=== PATIENT | male | born 2005 | race Caucasian/White ===

== ENCOUNTER 2024-11-11 13:18 | Outpatient (AMB) | payer OTHER, MEDICAID, SELFPAY ==
--- NOTE | 2024-11-11 13:24 | A.OFFPC_ITS ---
Vital Signs 11/11/24 13:26 Height 6 ft Weight 180 lb 6 oz BMI 24.5 BP 136/66 Blood Pressure Location Lt brachial Position Sitting Pulse 71 Pulse Oximetry (%) 100 Oxygen Delivery Method Room Air Intake Visit Reasons: establish care Geological Sample Tester Required: No Accompanied by: Self / Same As Patient Allergies amoxicillin (AMOXICILLIN) Allergy (Unknown, Verified 11/11/24 13:33) HIVES Medication List - Last Reconciled 11/11/24 by Shweta Saenz PA-C fluticasone propionate 50 mcg/actuation (Flonase Allergy Relief) 1 spray intranasal DAILY Tobacco use date assessed: 11/11/24 Dental Screening Dental Screen Date: 11/11/24 Did you have a dental visit in the last 12 months?: Yes Did you have a dental problem in the last 6 months where you did not have access to dental care?: No Was dental information given to patient?: Patient has dentist HPI establish care HPI Details 19-year-old male coming to the office fo r the 1st time. Presenting with anxiety and ADHD symptoms. Anxiety affects schoolwork, with procrastination and difficulty completing tasks. ADHD symptoms include difficulty focusing on boring tasks, leading to distraction. Considering medication for anxiety and ADHD, with Wellbutrin discussed. 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 Symptoms worsened over the past month, with numbness, tingling, and burning sensations, possibly due to a new job. He is schedueld to see [facility] on November 28. [facility] Family History Mother Breast cancer Maternal Grandmother Ovarian cancer Maternal Grandfather Leukemia Social History Housing: House Questionnaire PHQ-9 Over the last 2 weeks, how often have you been bothered by any of the following problems? 1. Little interest or pleasure in doing things: not at all 2. Feeling down, depressed, or hopeless: not at all 3. Trouble falling or staying asleep, or sleeping too much: several days 4. Feeling tired or having little energy: several days 5. Poor appetite or overeating: not at all 6. Feeling bad about yourself - or that you are a failure or have let yourself or your family down: not at all 7. Trouble concentrating on things, such as reading the newspaper or watching television: several days 8. Moving or speaking so slowly that other people could have noticed. Or the opposite - being so fidgety or restless that you have been moving around a lot more than usual: not at all 9. Thoughts that you would be better off or of hurting yourself in some way: not at all Total score: 3 Depression Screening Interpretation: Negative Depression Screening Done: Yes 00814 - PHQ-9 Billing: Yes Source: Developed by Drs. Abraham Camacho, Paz Fowler, Jeremy Aguirre and colleagues, with an educational kathy from [employer]. Thrive Questionnaire Date Thrive assessed: 11/11/24 I am a: Patient What is your living situation today?: I have a steady place to live Within the past 12 months, did the food you bought not last and you didn't have the money to get more?: Never true Within the past 12 months, did you worry whether your food would run out before you got money to buy more?: Never true Do you have trouble paying for medicines?: No Do you have trouble getting transportation to medical appointments?: No Do you have trouble paying your heating and electricity bill?: No Do you have trouble taking care of your child, family member or friend?: No Do you have trouble with day-to-day activities such as bathing, preparing meals, shopping, managing finances, etc.?: No Are you currently unemployed and looking for a job?: No Are you interested in more education?: No Please select the resources that you would like help with: None Currently or been in a relationship where the following occur: No concerns reported THRIVE Score: 0 AUDIT C Alcohol Use Questionnaire (AUDIT-C) 1. How often do you have a drink containing alcohol?: 2-4 times a month 2. How many drinks containing alcohol do you have on a typical day when you are drinking?: 1 or 2 3. How often do you have six or more drinks on one occasion?: Less than monthly Total Score: 3 RICK-7 AMB Questionnaire RICK-7 Date RICK - 7 assessed: 11/11/24 Feeling nervous, anxious, or on edge: 1 = Several days Not being able to stop or control worryin = Not at all Worrying too much about different things: 1 = Several days Trouble relaxin = Not at all Being so restless that it is hard to sit still: 0 = Not at all Becoming easily annoyed or irritable: 0 = Not at all Feeling afraid as if something awful might happen: 1 = Several days Total RICK-7 score (0-4 normal; 5-9 mild; 10-14 moderate; 15-21 severe): 3 Source: Developed by Drs. Abraham Camacho, Paz Fowler, Jeremy Aguirre and colleagues, with an educational kathy from [employer]. RICK-7 Assessment Billing RICK-7 Assessment Tool: RICK-7 Assessment 72896 Review of Systems Const Denies body aches, Denies chills, Denies fever(s), Denies headache(s) and Denies poor appetite Eyes Reports no additional complaints and Reports requires corrective lenses ENT Denies dysphagia, Denies dizziness, Denies headache(s) and Denies odynophagia Card Denies chest pain, Denies syncope, Denies edema, Denies irregular heart rhythm, Denies lightheadedness and Denies dyspnea Resp Denies cough and Denies dyspnea GI Denies abdominal pain, Denies constipation, Denies dysphagia, Denies diarrhea, Denies nausea, Denies odynophagia and Denies vomiting Reports no additional complaints Musc Reports no additional complaints and Denies abnormal gait Skin/Breast Reports system reviewed and no additional complaints, except as documented Neuro Denies abnormal gait, Denies dizziness, Denies syncope and Denies headache(s) Psych Reports no additional complaints Physical exam (Primary Care) Vital Signs: Last Vital Signs Pulse 71 11/11/24 13:26 BP 136/66 11/11/24 13:26 Pulse Ox 100 11/11/24 13:26 Oxygen Delivery Method Room Air 11/11/24 13:26 BMI result Body Mass Index 24.5 Tobacco/Smoking Status: Tobacco use Status Tobacco use date assessed 11/11/24 11/11/24 13:31 PHQ-9: PHQ-9 Score PHQ-9: Total score 3 11/11/24 13:36 Depression Screening Interpretation: Negative Thrive Assessment: Date of Thrive Assessment Date Thrive assessed 11/11/24 11/11/24 13:31 Currently or been in a relationship where the following occur: No concerns reported Const General: cooperative, healthy appearing, comfortable and no acute distress Orientation/consciousness: patient oriented x3 HENMT Head: Yes normocephalic Ears: hearing grossly normal bilaterally General nose exam: Normal external nose present Face and sinus: Yes normal facial exam and Yes sinuses nontender Mouth: Normal oral and palatal mucosa present and tongue normal Throat: Yes posterior oropharynx normal Eyes General: appearance normal, both eyes and all related structures Conjunctivae: conjunctivae normal Pupils: Equal, round and reactive pupils present EOM: EOMs intact bilaterally and No Nystagmus present Neck Other: No tenderness to palpation over cervical spine Neck: Yes full ROM and Yes no lymphadenopathy Chest Chest palpation & inspection: normal inspection of the chest Resp Effort & Inspection: normal respiratory effort Auscultation: clear to auscultation bilaterally, no crackles, no rales, no rhonchi and no wheezes Cardio Rate: regular rate Rhythm: regular rhythm Peripheral pulses: radial pulses present and dorsalis pedis present GI Inspection: Yes normal to inspection and No Abdominal wall edema Palpation (GI): Soft to palpation, not firm and nontender Auscultation: normal bowel sounds Rectal Exam - Male: Yes deferred General: Yes no CVA tenderness Back/Spine/Pelvis Other: No tenderness to palpation over entirety of spine or paraspinal muscles Back: no CVA tenderness Skin General skin exam: no rashes or lesions noted Neuro Other: No tenderness to palpation over entirety of left shoulder or scapula. Pain with internal rotation General: patient oriented x3 Cranial nerves: Yes Equal, round and reactive pupils present, Yes Midline tongue present, Yes Ability to bilaterally elevate shoulders present and No Nystagmus present Gait exam (Neuro): Normal gait present Extrem General: Yes normal to inspection, Yes full ROM and No edema Psych Speech and movement: Normal speech and movement present Affect: normal affect Attitude: cooperative Insight: Good insight present (Psych) Judgement: Good judgement present (Psych) Coding Level of Care Code New Pt Prev Care 18-39yr(16857 Diagnoses Annual physical exam Z00.00 Anxiety F41.9 Difficulty concentrating R41.840 Left shoulder pain M25.512 Allergic rhinitis J30.9 Additional Codes RICK-7 Assessment Billing - RICK-7 Assessment Tool: RICK-7 Assessment 85268 ([id number]) PHQ-9 - 50084 - PHQ-9 Billing: Yes ([id number]) Assessment & Plan Assessment & Plan (1) Annual physical exam: Code(s): Z00.00 - Encounter for general adult medical examination without abnormal findings Category: Medical Plan: Patient is up-to-date on all recommended routine screenings and vaccinations for his age. I ordered for updated blood work. Healthy diet and regular exercise is encouraged. (2) Anxiety: Code(s): F41.9 - Anxiety disorder, unspecified Category: Medical Plan: For anxiety and possible ADHD plan to trial Wellbutrin twice daily for co- treatment of these conditions. Plan to have a follow up telehealth visit in 4 months to evaluate how the medication is working or sooner if needed. (3) Difficulty concentrating: Code(s): R41.840 - Attention and concentration deficit Category: Medical Plan: See above (4) Left shoulder pain: Code(s): M25.512 - Pain in left shoulder Category: Medical Plan: An x-ray of the shoulder is recommended to check for structural issues, however he would like to defer at this time to allow Orthopedics to obtain this imaging, and physical therapy is suggested to alleviate muscular pain. The patient should follow up with orthopedics for further assessment. Patient may use Tylenol, ibuprofen and heating pads as needed (5) Allergic rhinitis: Code(s): J30.9 - Allergic rhinitis, unspecified Category: Medical Plan: Continue with Flonase Plan The patient will start Wellbutrin at 100 mg twice daily to manage anxiety and ADHD symptoms, with a follow-up planned to evaluate its effectiveness and any side effects. If Wellbutrin is not suitable, other treatment options will be explored. The patient should report any adverse effects, such as increased agitation, immediately. Preventative care includes an annual physical exam and updated vaccinations. Blood work is ordered to evaluate kidney, liver, electrolytes, vitamins, and thyroid function, to be completed within four months for review at the next visit. This note was constructed using voice recognition software. While every effort has been made to ensure accuracy and woods rider, still areas may have been included sometimes these areas may affect the content or meeting of the given symptoms. Total time spent caring for the patient today was 30 minutes. This includes time spent before the visit reviewing the chart, time spent during the visit, and time spent after the visit and documentation. Patient was informed and verbally consented to the use of an ambient scribe for clinic note documentation during this visit. Orders: Orders PT Evaluation and Treatment Today M25.512 - Pain in left shoulder TSH reflex Free T4 Today F41.9 - Anxiety disorder, unspecified, Z00.00 - Encounter for general adult medical examination without abnormal findings Vitamin B12 and Folate Today F41.9 - Anxiety disorder, unspecified, Z13.21 - Encounter for screening for nutritional disorder Complete Blood Count Auto Diff Today J30.9 - Allergic rhinitis, unspecified, Z00.00 - Encounter for general adult medical examination without abnormal findings Comprehensive Met. Panel Today F41.9 - Anxiety disorder, unspecified, Z00.00 - Encounter for general adult medical examination without abnormal findings Medications: New bupropion HCl 100 mg PO BID 60 tabs 0RF
[2024-11-11 13:26] VITALS: BP 136/66; PULSE 71; O2SAT 100; BMI 24.5
--- OUTSIDE RECORDS SUMMARY | 2024-11-11 14:02 | XMS_ITS | Clinical Summary ---
Author Organization [facility] Address [address] [place] [id number] Phone Care Team Providers Care Poker Manager Name Role Phone Pcp, Unknown Primary Care Provider Unavailabl e Social History Tobacco Use Types Packs/Day Years Used Date Smoking Tobacco: Never Assessed Education Answer Date Recorded Are you interested in more education? Not on pili e 11/06/2024 Are you concerned about learning? Not on file 11/06/2024 No 11/06/2024 No 11/06/2024 Digital Access Answer Date Recorded No 11/06/2024 No 11/06/2024 Reliable internet access at home? Not on file 11/06/2024 Device with a working camera? Not on file Sex and Gender Information Value Date Recorded Sex Assigned at Not on file Legal Sex Male 9:09 AM EDT Gender Identity Not on file Sexual Orientation Not on file Plan of Treatment Upcoming Encounters Date Type Department Care Team (Late st Contact Info) Description 11/27/2024 1:15 PM EDT Office Visit [facility] Orthopedics & Sports Medicine [address] [place] [id number] Emma Rodriguez MD [address] [place] [address] Orthopedics & Sports Medicine, [facility] [place] [address] Health Maintenance Due Date Last Done Comments Adult Td,Tdap Booster 2003 MMR VACCINES (1 of 1 - Stand deena series) 09/28/2004 COMBINED DTaP,Tdap,Td (1 - Tdap) 09/28/2010 DEPRESSION SCREENING 2015 SMOKING Hx and SMOKELESS TOB ACCO SCREENING 09/28/2016 HPV VACCINES (1 - Male 3-dos e series) 09/28/2018 MENINGOCOCCAL VACCINES (B) ( 1 of 2 - Standard) 2019 ADOLESCENT UNIVERSAL LIPID SCREENING 09/28/2020 HEPATITIS C SCREENING 09/28/2021 HIV ONE-TIME SCREENING (18-6 5 YEARS) 09/28/2021 COVID-19 VACCINE (1 - 2023-2 5 season) 2023 HEPATITIS A VACCINES Aged Out No long er eligible based on patient's age to complete this topic HIB VACCINES Aged Out No longer eligi ble based on patient's age to complete this topic MENINGOCOCCAL VACCINES (ACWY) Aged Out No longer eligible based on patient's age to complete this topic PNEUMOCOCCAL VACCINES (0-49 years) Aged Out No longer eligible based on patient's age to complete this topic Medical Devices Not on file Insurance [facility] HMO Care Teams Poker Manager Relationship Specialty Start Date End Date Pcp, Unknown PCP - General 11/06/24 Additional Source Comments The information contained in this document represents components of the legal health record. It is not the complete legal health record.[facility]
--- OUTSIDE RECORDS SUMMARY | 2024-11-11 14:02 | XMS_ITS | Encounter Summary ---
Author Organization [facility] Address [address] [place] [phone] Phone Care Team Providers Care Plant Operator Control Room Operator Name Role Phone Unavailable Primary Care Provider Unavailabl e Encounter Details Date Type Department Care Team (Late st Contact Info) Description 09/24/2012 Documentation [facility] [place] [address] [place] [address] Family Medicine, Physician [facility] [place] [address] Social History Tobacco Use Types Packs/Day Years Used Date Smoking Tobacco: Never Assessed Sex and Gender Information Value Date Recorded Sex Assigned at Male 09/28/2023 11:19 AM EDT Legal Sex Male 4:58 PM EDT Gender Identity Male 09/28/2023 11:19 AM EDT Sexual Orientation Straight 07/07/2021 9: 13 AM EDT documented as of this encounter Plan of Treatment Not on file documented as of this encounter Visit Diagnoses Not on filedocumented in this encounter
== END 2024-11-11 14:06 | disposition home or self-care (01) ==
DX: Z00.00 Encounter for general adult medical examination without abnormal findings (principal); F41.9 Anxiety disorder, unspecified; R41.840 Attention and concentration deficit; M25.512 Pain in left shoulder; J30.9 Allergic rhinitis, unspecified

== ENCOUNTER → 2024-11-11 13:18 | Outpatient (BNVA) | payer OTHER, SELFPAY | DX: Z00.00 Encounter for general adult medical examination without abnormal findings (principal); F41.9 Anxiety disorder, unspecified; R41.840 Attention and concentration deficit; M25.512 Pain in left shoulder; J30.9 Allergic rhinitis, unspecified | CPT/HCPCS: 96127 ==

== ENCOUNTER 2024-12-02 13:52 | Outpatient (REF) | payer OTHER, MEDICAID, SELFPAY ==
[2024-12-02 14:11] LABS: MANUAL DIFF FLAG NO
--- OUTSIDE RECORDS SUMMARY | 2024-12-02 14:22 | XMS_ITS | Encounter Summary ---
Author Organization [facility] Address [address] [place] [phone] Phone Care Team Providers Care Egg Setter Name Role Phone Unavailable Primary Care Provider Unavailabl e Encounter Details Date Type Department Care Team (Late st Contact Info) Description 02/22/2011 Documentation [facility] [place] [address] [place] [address] Family Medicine, Physician [facility] [place] [address] Social History Tobacco Use Types Packs/Day Years [...]
--- OUTSIDE RECORDS SUMMARY | 2024-12-02 14:22 | XMS_ITS | Clinical Summary ---
Author Organization [facility] Address [address] [facility] [address] [place] [phone] Phone Care Team Providers Care Drapery Cutter Machine Name Role Phone Shweta Saenz Primary Care Provide r Allergies Active Allergy Reactions Criticality Noted Date Comments Amoxicillin Hives,Rash Low 11/27/2024 Medications No known medications Encounters Date Type Department Care Team Description 11/27/2024 1:15 PM EDT Office Visit [facility] Orthopedics & Sports Medicine [address] [place] [id number] Emma Rodriguez MD Periscapular pain of left shoulder (Primary Dx) 11/27/2024 1:14 PM EDT - 11/27/2024 11:59 PM EDT Hospital Encounter [address] [address] Emma Rodriguez MD Discharge Disposition: Home or Self Care from Last 3 Months Social History Tobacco Use Types Packs/Day Years [...] Orientation Not on file Plan of Treatment Health Maintenance Due Date Last Done Comments DEPRESSION SCREENING 2015 SMOKING Hx and SMOKELESS TOBACCO SCREENING 09/28/2016 ADOLESCENT UNIVERSAL LIPID SCREENING 09/28/2020 HIV ONE-TIME SCREENING (18-65 YEARS) 09/28/2021 COMBINED DTaP,Tdap,Td (3 - Td or Tdap) 05/19/2024 11/17/2023, 11/12/2014 Adult Td,Tdap Booster 11/16/2033 11/17/2023, 015 MMR VACCINES Completed 10/29/2007, 10/04/2004 HPV VACCINES Completed 06/06/2016, 01/22, 12/01/2015 MENINGOCOCCAL VACCINES (ACWY) Completed 10/22/2019, 11/12/2014 MENINGOCOCCAL VACCINES (B) Completed 09/26/2022, HEPATITIS C SCREENING Completed 09/28/2023 COVID-19 VACCINE Completed 01/27/2024, , 03/15/2022, Additional history exists HEPATITIS A VACCINES Aged Out No long er eligible based on patient's age to complete this topic HIB VACCINES Aged Out No longer eligi ble based on patient's age to complete this topic PNEUMOCOCCAL VACCINES (0-49 years) Aged Out No longer eligible based on patient's age to complete this topic Medical Devices Not on file Procedures Procedure Name Priority Date/Time Associated Diagnosis Comments XR SHOULDER 2 VIEWS (LEFT) Routine 11/27/2024 1:24 PM EDT Left shoulder pain from Last 3 Months Results * XR SHOULDER 2 VIEWS (LEFT) (11/27/2024 1:24 PM EDT) Narrative SYSTEMGENERATED, DOCUMENTATION - 11/27/2024 1:24 PM EDT This image report has been auto-finalized and has not been read by a Radiologist. Interpretation has been included in the provider encounter note for this date of service. us Emma Rodriguez MD IMG XR UPPER EXTREMITY Fi nal Result from Last [address] [place], [place] [id number] [facility] O Member Subscriber Plan / Payer (Ef fective 2024-) Name:Sonny Edwards Relation to Subscriber:Self Name:Sonny Edwards Payer ID:Not on file Type:[address] Member Subscriber Plan / Payer (Ef fective 2024-) Name:Sonny Edwards Relation to Subscriber:Self Name:Sonny Edwards Payer ID:Not on file Type:O [address] Member Subscriber Plan / Payer (Ef fective 2024-) Name:Sonny Edwards Relation to Subscriber:Self Name:Sonny Edwards Payer ID:Not on file Type:O [address] Member Subscriber Plan / Payer (Ef fective 2024-) Name:Sonny Edwards Relation to Subscriber:Self Name:Sonny Edwards Payer ID:Not on file Type:[facility] [address] Care Teams Drapery Cutter Machine Relationship Specialty Start Date End Date Shweta Saenz PA [address] [place] [address] [place] [address] PCP - General Physician Air Conditioning Service Technician 11/27/24 Additional Source Comments The information contained in this document represents components of the legal health record. It is not the complete legal health record.[facility]
[2024-12-02 14:54] LABS: Hematocrit 44.7 % (42.0-52.0); Hemoglobin 15.6 g/dl (14.0-18.0); Imm Gran Abs Auto 0.01 X10*3/uL (0.00-0.03); Imm Gran Pct Auto 0.2 % (0.0-0.4); Lymphocytes Absolute Auto 1.8 X10*3/uL (1.2-4.9); Mean Corpuscular HGB Conc 34.9 g/dl (31.0-36.0); Mean Corpuscular Hemoglobin 28.4 pg (27.0-33.0); Mean Corpuscular Volume 81.3 fL (80.0-98.0); NRBC Abs Auto 0.000 X10*3/uL (0.0-0.012); NRBC Pct Auto 0.0 /100WBC (0.0-0.2); Platelet Count 269 X10*3/uL (160-400); Red Blood Count 5.50 X10*6/uL (4.60-5.80); White Blood Count 5.5 X10*3/uL (4.8-10.8)
[2024-12-02 15:48] LABS: Alanine Aminotransferase 26 U/L (0-40); Albumin Level 4.9 g/dL (3.5-5.0); Alkaline Phosphatase 64 U/L (39-117); Anion Gap 12 (12-20); Aspartate Amino Transferase 24 U/L (5-37); Blood Urea Nitrogen 12 mg/dL (9-16); Calcium 9.5 mg/dL (8.4-10.2); Carbon Dioxide 26 mmol/L (22-29); Chloride 107 mmol/L (96-108); Estimated Glomerular Filt Rate > 60; Potassium 4.1 mmol/L (3.3-5.1); Sodium 141 mmol/L (135-145); Total Protein 7.5 g/dL (6.5-8.0)
[2024-12-02 16:18] LABS: Folate 6.3 ng/mL (> or = 4.0); Vitamin B12 476 pg/mL (200-900)
== END 2024-12-02 13:53 | disposition home or self-care (01) ==
LOC: HO.LAB 13:52
DX: Z00.00 Encounter for general adult medical examination without abnormal findings (principal); F41.9 Anxiety disorder, unspecified; J30.9 Allergic rhinitis, unspecified; Z13.21 Encounter for screening for nutritional disorder
CPT/HCPCS: 36415; 80053; 82607; 82746; 84443; 85025

== ENCOUNTER 2025-03-14 15:01 | Outpatient (AMB) | payer OTHER, MEDICAID, SELFPAY ==
[2025-03-14 15:05] VITALS: BMI 22.4
--- NOTE | 2025-03-14 15:05 | MHC.PC.OV ---
Vital Signs 03/14/25 15:05 Height 6 ft Weight 165 lb BMI 22.4 Intake Visit Reasons: f/u medication tele Healthcare Manager Required: No Accompanied by: Self / Same As Patient Allergies amoxicillin (AMOXICILLIN) Allergy (Unknown, Verified 03/14/25 15:13) HIVES Medication List - Last Reconciled 03/14/25 by Shweta Saenz PA-C bupropion HCl 100 mg PO BID fluticasone propionate 50 mcg/actuation (Flonase Allergy Relief) 1 spray intranasal DAILY Tobacco use date assessed: 11/11/24 Dental Screening Dental Screen Date: 11/11/24 Did you have a dental visit in the last 12 months?: Yes Did you have a dental problem in the last 6 months where you did not have access to dental care?: No Was dental information given to patient?: Patient has dentist HPI f/u medication tele HPI Details 19 year old male with past medical history anxiety last seen 10/2024 presenting via telehealth for follow up on anxiety. Patient was started on Wellbutrin at his last visit for anxiety and ADHD. Patient tells us today he has not been having side effects to the Wellbutrin but does not feel it has been overly beneficial for him. He would like to increase the dose of the medication. His shoulder pain has resolved he has no concerns today [facility] Family History Mother Breast cancer Maternal Grandmother Ovarian cancer Maternal Grandfather Leukemia Social History Housing: House Patient Tobacco Use Status: Never used Tobacco Tobacco use type: Cigarette e-Cigarette/Vaping Use: Never Used service: No Current occupational status: employed and student Current occupation: [employer] Cognitive needs: No Hearing needs: No Vision needs: No Questionnaire PHQ-9 Over the last 2 weeks, how often have you been bothered by any of the following problems? 1. Little interest or pleasure in doing things: not at all 2. Feeling down, depressed, or hopeless: not at all 3. Trouble falling or staying asleep, or sleeping too much: several days 4. Feeling tired or having little energy: several days 5. Poor appetite or overeating: not at all 6. Feeling bad about yourself - or that you are a failure or have let yourself or your family down: not at all 7. Trouble concentrating on things, such as reading the newspaper or watching television: several days 8. Moving or speaking so slowly that other people could have noticed. Or the opposite - being so fidgety or restless that you have been moving around a lot more than usual: not at all 9. Thoughts that you would be better off or of hurting yourself in some way: not at all Total score: 3 Depression Screening Interpretation: Negative Depression Screening Done: Yes 54871 - PHQ-9 Billing: Yes Source: Developed by Drs. Abraham Camacho, Paz Fowler, Jeremy Aguirre and colleagues, with an educational kathy from [employer]. Thrive Questionnaire Date Thrive assessed: 11/07/24 I am a: Patient What is your living situation today?: I have a steady place to live Within the past 12 months, did the food you bought not last and you didn't have the money to get more?: Never true Within the past 12 months, did you worry whether your food would run out before you got money to buy more?: Never true Do you have trouble paying for medicines?: No Do you have trouble getting transportation to medical appointments?: No Do you have trouble paying your heating and electricity bill?: No Do you have trouble taking care of your child, family member or friend?: No Do you have trouble with day-to-day activities such as bathing, preparing meals, shopping, managing finances, etc.?: No Are you currently unemployed and looking for a job?: No Are you interested in more education?: No Please select the resources that you would like help with: None Currently or been in a relationship where the following occur: No concerns reported THRIVE Score: 0 AUDIT C Alcohol Use Questionnaire (AUDIT-C) 1. How often do you have a drink containing alcohol?: 2-4 times a month 2. How many drinks containing alcohol do you have on a typical day when you are drinking?: 1 or 2 3. How often do you have six or more drinks on one occasion?: Less than monthly Total Score: 3 RICK-7 AMB Questionnaire RICK-7 Date RICK - 7 assessed: 11/11/24 Feeling nervous, anxious, or on edge: 1 = Several days Not being able to stop or control worryin = Not at all Worrying too much about different things: 1 = Several days Trouble relaxin = Not at all Being so restless that it is hard to sit still: 0 = Not at all Becoming easily annoyed or irritable: 0 = Not at all Feeling afraid as if something awful might happen: 1 = Several days Total RICK-7 score (0-4 normal; 5-9 mild; 10-14 moderate; 15-21 severe): 3 Source: Developed by Drs. Abraham Camacho, Paz Fowler, Jeremy Aguirre and colleagues, with an educational kathy from [employer]. RICK-7 Assessment Billing RICK-7 Assessment Tool: RICK-7 Assessment 78140 Review of Systems Const Denies body aches, Denies chills, Denies fever(s), Denies headache(s) and Denies poor appetite Eyes Reports no additional complaints ENT Denies dizziness and Denies headache(s) Card Denies chest pain, Denies edema, Denies lightheadedness and Denies dyspnea Resp Denies cough and Denies dyspnea GI Denies abdominal pain, Denies nausea and Denies vomiting Reports no additional complaints Musc Reports no additional complaints and Denies abnormal gait Skin/Breast Reports system reviewed and no additional complaints, except as documented Neuro Denies abnormal gait, Denies dizziness and Denies headache(s) Psych Reports no additional complaints Physical exam (Primary Care) Vital Signs: Vital signs and physical exam not performed due to nature of telehealth visit BMI result Body Mass Index 22.4 Tobacco/Smoking Status: Tobacco use Status Tobacco use date assessed 11/11/24 03/14/25 15:07 Patient Tobacco Use Status Never used Tobacco 03/14/25 15:07 Tobacco use type Cigarette 03/14/25 15:07 e-Cigarette/Vaping Use Never Used 03/14/25 15:07 PHQ-9: PHQ-9 Score PHQ-9: Total score 3 03/14/25 15:07 Depression Screening Interpretation: Negative Thrive Assessment: Date of Thrive Assessment Date Thrive assessed 11/07/24 03/14/25 15:07 Currently or been in a relationship where the following occur: No concerns reported Telehealth Telehealth Telehealth Platform: Telephone Location of provider rendering services: practice address Location of patient: address on file Patient Identification confirmed using: Name, : Yes Telehealth method: voice only Patient verbally consented to treatment: Yes Patient verbally consented to billing insurance company: Yes Patient informed of any privacy concerns related to visit: Yes Coding Level of Care Code Est Pt Level 3 (20996) Diagnoses Anxiety F41.9 Difficulty concentrating R41.840 Left shoulder pain M25.512 Additional Codes RICK-7 Assessment Billing - RICK-7 Assessment Tool: RICK-7 Assessment 44214 ([id number]) PHQ-9 - 98814 - PHQ-9 Billing: Yes ([id number]) Assessment & Plan Assessment & Plan (1) Anxiety: Code(s): F41.9 - Anxiety disorder, unspecified Category: Medical Plan: Plan to switch wellbutrin to 150 mg sustained release BID to increase the dose as he does not feel the TID dosing would be a good option for him. Discussed with patient to follow up if he has side effects to this medication or if he does not feel it is effective. He will reach out if he has any concern. (2) Difficulty concentrating: Code(s): R41.840 - Attention and concentration deficit Category: Medical Plan: See above. (3) Left shoulder pain: Code(s): M25.512 - Pain in left shoulder Category: Medical Plan: Resolved at this time. Plan This note was constructed using voice recognition software. While every effort has been made to ensure accuracy and cloth washer operator, still areas may have been included sometimes these areas may affect the content or meeting of the given symptoms. Total time spent caring for the patient today was 15 minutes. This includes time spent before the visit reviewing the chart, time spent during the visit, and time spent after the visit and documentation. Patient was informed and verbally consented to the use of an ambient scribe for clinic note documentation during this visit. Medications: New bupropion HCl SR (Wellbutrin SR) 150 mg PO BID 180 tabs 0RF Discontinued bupropion HCl Discontinued Reason: Patient no longer taking 100 mg PO BID 180 tabs 1RF
--- OUTSIDE RECORDS SUMMARY | 2025-03-14 15:10 | XMS_ITS | Encounter Summary ---
Author Organization [facility] Address [address] [place] [address] Phone Care Team Providers Care Floral Decorator Name Role Phone Unavailable Primary Care Provider Unavailabl e Encounter Details Date Type Department Care Team (Late st Contact Info) Description 02/03/2016 Documentation [facility] [place] Family Medicine [address] [place] [address] Family Medicine, Physician [facility] [place] [address] Social History Tobacco Use Types Packs/Day Years [...]
--- OUTSIDE RECORDS SUMMARY | 2025-03-14 15:10 | XMS_ITS | Encounter Summary ---
Author Organization [facility] Address [address] [place] [address] Phone Care Team Providers Care Property Field Inspector Name Role Phone Unavailable Primary Care Provider Unavailabl e Encounter Details Date Type Department Care Team (Late st Contact Info) Description 02/24/2014 Documentation [facility] [place] [address] [place] [address] Family Medicine, Physician [facility] [address] Social History Tobacco Use Types Packs/Day Years [...]
--- OUTSIDE RECORDS SUMMARY | 2025-03-14 15:10 | XMS_ITS | Encounter Summary ---
Author Organization [facility] Address [address] [place] [address] Phone Care Team Providers Care Healthcare Translator Name Role Phone Unavailable Primary Care Provider Unavailabl e Encounter Details Date Type Department Care Team (Late st Contact Info) Description 02/21/2011 Documentation [facility] [place] [facility] [place] [address] [place] [address] Family Medicine, Physician [facility] [place] [address] Social History Tobacco Use Types Packs/Day Years [...]
--- OUTSIDE RECORDS SUMMARY | 2025-03-14 15:10 | XMS_ITS | Encounter Summary ---
Author Organization [facility] Address [address] [place] [address] Phone Care Team Providers Care Data Designer Name Role Phone Unavailable Primary Care Provider Unavailabl e Encounter Details Date Type Department Care Team (Late st Contact Info) Description 02/01/2012 Documentation [facility] [place] Family Medicine [address] [place] [address] Family Medicine, Physician [facility] [place] [address] Social History Tobacco Use Types Packs/Day Years [...]
--- OUTSIDE RECORDS SUMMARY | 2025-03-14 15:10 | XMS_ITS | Encounter Summary ---
Author Organization [facility] Address [address] [place] [address] Phone Care Team Providers Care Manager Student Services Name Role Phone Unavailable Primary Care Provider Unavailabl e Encounter Details Date Type Department Care Team (Late st Contact Info) Description 02/03/2016 Documentation [facility] [place] Family Medicine [address] [place] [address] Family Medicine, Physician [facility]placed by [facility] [place] [address] Social History Tobacco Use Types Packs/Day Years [...]
--- OUTSIDE RECORDS SUMMARY | 2025-03-14 15:10 | XMS_ITS | Encounter Summary ---
Author Organization [facility] Address [address] [place] [address] Phone Care Team Providers Care Swahili Teacher Name Role Phone Unavailable Primary Care Provider Unavailabl e Encounter Details Date Type Department Care Team (Late st Contact Info) Description 01/24/2013 Documentation [facility] [place] Family Medicine [address] [place] [address] Family Medicine, Physician [facility] [place] [address] Social History Tobacco Use Types Packs/Day Years [...]
--- OUTSIDE RECORDS SUMMARY | 2025-03-14 15:10 | XMS_ITS | Encounter Summary ---
Author Organization [facility] Address [address] [place] [address] Phone Care Team Providers Care Mailhouse Operator Name Role Phone Unavailable Primary Care Provider Unavailabl e Encounter Details Date Type Department Care Team (Late st Contact Info) Description 02/25/2014 Documentation [facility] Family Medicine [address] [place] [address] Family Medicine, Physician [facility] [place] [address] Social History Tobacco Use Types Packs/Day Years [...]
--- OUTSIDE RECORDS SUMMARY | 2025-03-14 15:10 | XMS_ITS | Encounter Summary ---
Author Organization [facility] Address [address] [place] [address] Phone Care Team Providers Care Rn Perioperative Name Role Phone Unavailable Primary Care Provider Unavailabl e Encounter Details Date Type Department Care Team (Late st Contact Info) Description 10/04/2012 Documentation [facility] [place] Family Medicine [address] [place] [address] Family Medicine, Physician [facility] [place] [address] Social History Tobacco Use Types Packs/Day Years [...]
--- OUTSIDE RECORDS SUMMARY | 2025-03-14 15:10 | XMS_ITS | Encounter Summary ---
Author Organization [facility] Address [address] [place] [address] Phone Care Team Providers Care Soil Fertility Specialist Name Role Phone Unavailable Primary Care Provider Unavailabl e Encounter Details Date Type Department Care Team (Late st Contact Info) Description 12/02/2015 Documentation [facility] [place] Family Medicine [address] [place] [address] Family Medicine, Physician [facility] [place] [address] Social History Tobacco Use Types Packs/Day Years [...]
--- OUTSIDE RECORDS SUMMARY | 2025-03-14 15:10 | XMS_ITS | Encounter Summary ---
Author Organization [facility] Address [address] [place] [address] Phone Care Team Providers Care Digital Product Manager Name Role Phone Unavailable Primary Care Provider Unavailabl e Encounter Details Date Type Department Care Team (Late st Contact Info) Description 11/07/2011 Documentation [facility] [place] [address] [place] [address] Family Medicine, Physician [facility] [place] [address] Social History Tobacco Use Types Packs/Day Years [...]
--- OUTSIDE RECORDS SUMMARY | 2025-03-14 15:10 | XMS_ITS | Encounter Summary ---
Author Organization [facility] Address [address] [place] [address] Phone Care Team Providers Care Tin Pourer Name Role Phone Unavailable Primary Care Provider Unavailabl e Encounter Details Date Type Department Care Team (Late st Contact Info) Description 11/13/2014 Documentation [facility] [place] Family Medicine [address] [place] [address] Family Medicine, Physician [facility] [place] [address] Social History Tobacco Use Types Packs/Day Years [...]
--- OUTSIDE RECORDS SUMMARY | 2025-03-14 15:10 | XMS_ITS | Encounter Summary ---
Author Organization [facility] Address [address] [place] [address] Phone Care Team Providers Care Rn Documentation Specialist Name Role Phone Unavailable Primary Care Provider Unavailabl e Encounter Details Date Type Department Care Team (Late st Contact Info) Description 07/21/2015 Documentation [facility] [place] [address] [place] [address] Family Medicine, Physician [facility] [place] [address] Social History Tobacco Use Types Packs/Day Years [...]
--- OUTSIDE RECORDS SUMMARY | 2025-03-14 15:10 | XMS_ITS | Encounter Summary ---
Author Organization [facility] Address [address] [place] [address] Phone Care Team Providers Care Loan And Credit Manager Name Role Phone Unavailable Primary Care Provider Unavailabl e Encounter Details Date Type Department Care Team (Late st Contact Info) Description 12/02/2015 Documentation [facility] [place] [address] [place] [address] Family Medicine, Physician [facility] [place] [address] Social History Tobacco Use Types Packs/Day Years [...]
--- OUTSIDE RECORDS SUMMARY | 2025-03-14 15:10 | XMS_ITS | Encounter Summary ---
Author Organization [facility] Address [address] [place] [address] Phone Care Team Providers Care Halfway House Counselor Name Role Phone Unavailable Primary Care Provider Unavailabl e Encounter Details Date Type Department Care Team (Late st Contact Info) Description 11/06/2012 Documentation [facility] [place] [address] [place] [address] Family Medicine, Physician [facility] [place] [address] Social History Tobacco Use Types Packs/Day Years [...]
--- OUTSIDE RECORDS SUMMARY | 2025-03-14 15:10 | XMS_ITS | Encounter Summary ---
Author Organization [facility] Address [address] [place] [address] Phone Care Team Providers Care Aoc Director Combat Operations Officer Name Role Phone Unavailable Primary Care Provider Unavailabl e Encounter Details Date Type Department Care Team (Late st Contact Info) Description 11/07/2011 Documentation [facility] [place] Family Medicine [address] [place] [address] Family Medicine, Physician [facility] [place] [address] Social History Tobacco Use Types Packs/Day Years [...]
--- OUTSIDE RECORDS SUMMARY | 2025-03-14 15:10 | XMS_ITS | Encounter Summary ---
Author Organization [facility] Address [address] [place] [address] Phone Care Team Providers Care Last Ironer Name Role Phone Unavailable Primary Care Provider Unavailabl e Encounter Details Date Type Department Care Team (Late st Contact Info) Description 11/06/2012 Documentation [facility] [place] Family Medicine [address] [place] [address] Family Medicine, Physician [facility] [place] [address] Social History Tobacco Use Types Packs/Day Years [...]
--- OUTSIDE RECORDS SUMMARY | 2025-03-14 15:10 | XMS_ITS | Encounter Summary ---
Author Organization [facility] Address [address] [place] [address] Phone Care Team Providers Care Vocational Director Name Role Phone Unavailable Primary Care Provider Unavailabl e Encounter Details Date Type Department Care Team (Late st Contact Info) Description 02/24/2014 Documentation [facility] [place] Family Medicine [address] [place] [address] Family Medicine, Physician [place] [address] Social History Tobacco Use Types Packs/Day Years [...]
--- OUTSIDE RECORDS SUMMARY | 2025-03-14 15:10 | XMS_ITS | Encounter Summary ---
Author Organization [facility] Address [address] [place] [address] Phone Care Team Providers Care Occupational Safety Specialist Name Role Phone Unavailable Primary Care Provider Unavailabl e Encounter Details Date Type Department Care Team (Late st Contact Info) Description 10/23/2014 Documentation [facility] [place] [address] [place] [address] Family Medicine, Physician [facility] [place] [address] Social History Tobacco Use Types Packs/Day Years [...]
--- OUTSIDE RECORDS SUMMARY | 2025-03-14 15:10 | XMS_ITS | Encounter Summary ---
Author Organization [facility] Address [address] [place] [address] Phone Care Team Providers Care Transportation Dispatch Manager Name Role Phone Unavailable Primary Care Provider Unavailabl e Encounter Details Date Type Department Care Team (Late st Contact Info) Description 11/11/2010 Documentation [facility] [place] Family Medicine [address] [place] [address] Family Medicine, Physician [facility] [place] [address] Social History Tobacco Use Types Packs/Day Years [...]
--- OUTSIDE RECORDS SUMMARY | 2025-03-14 15:10 | XMS_ITS | Clinical Summary ---
Author Organization [facility] Address [address] [place] [address] [place] [address] Phone Care Team Providers Care Senior Portfolio Manager Name Role Phone Shweta Saenz Primary Care Provide r Allergies Active Allergy Reactions Criticality Noted Date Comments Amoxicillin Hives,Rash Low 11/27/2024 Medications No known medications Social History Tobacco Use Types Packs/Day Years [...] - Td or Tdap) 05/19/2024 11/17/2023, 11/12/2014 INFLUENZA VACCINE (#1) 2024 , 03/02/2021, 02/04/2020, Additional history exists COVID-19 VACCINE ( season) 2024 01/27/2024, 04/11/2023, 03/15/2022, Additional history exists Adult Td,Tdap Booster 11/16/2033 11/17/2023, 015 MMR VACCINES Completed 10/29/2007, 10/04/2004 HPV VACCINES Completed 06/06/2016, 01/22, 12/01/2015 MENINGOCOCCAL VACCINES (ACWY) Completed 10/22/2019, 11/12/2014 MENINGOCOCCAL VACCINES (B) Completed 09/26/2022, HEPATITIS C SCREENING Completed 09/28/2023 HEPATITIS A VACCINES Aged Out No long er eligible based on patient's age to complete this topic HIB VACCINES Aged Out No longer eligi ble based on patient's age to complete this topic PNEUMOCOCCAL VACCINES (0-49 years) Aged Out No longer eligible based on patient's age to complete this topic Medical Devices Not on file Insurance [facility] O Member Subscriber Plan / Payer (Ef fective 2024-) Name:Sonny Edwards Relation to Subscriber:Self Name:Sonny Edwards Payer ID:Not on file Type:O [address] Member Subscriber Plan / Payer (Ef fective 2024-) Name:Sonny Edwards Relation to Subscriber:Self Name:Sonny Edwards Payer ID:Not on file Type:O [address] [facility] Care Teams Senior Portfolio Manager Relationship Specialty Start Date End Date Shweta Saenz PA [address] [place] [address] PCP - General Physician Integration Lead 11/27/24 Additional Source Comments The information contained in this document represents components of the legal health record. It is not the complete legal health record.[facility]
--- OUTSIDE RECORDS SUMMARY | 2025-03-14 15:10 | XMS_ITS | Encounter Summary ---
Author Organization [facility] Address [address] [place] [address] Phone Care Team Providers Care Angle Shear Set Up Operator Name Role Phone Unavailable Primary Care Provider Unavailabl e Encounter Details Date Type Department Care Team (Late st Contact Info) Description 09/24/2012 Documentation [facility] [place] Family Medicine [address] [place] [address] Family Medicine, Physician [facility] [place] [address] Social History Tobacco Use Types Packs/Day Years [...]
--- OUTSIDE RECORDS SUMMARY | 2025-03-14 15:10 | XMS_ITS | Encounter Summary ---
Author Organization [facility] Address [address] [place] [phone] Phone Care Team Providers Care Data Governance Consultant Name Role Phone Unavailable Primary Care Provider Unavailabl e Encounter Details Date Type Department Care Team (Late st Contact Info) Description 11/25/2014 [place]ation [facility] [place] [address] [place] [address] Family Medicine, [place] [address] Social History Tobacco Use Types Packs/Day Years [...]
--- OUTSIDE RECORDS SUMMARY | 2025-03-14 15:10 | XMS_ITS | Encounter Summary ---
Author Organization [facility] Address [address] [place] [phone] Phone Care Team Providers Care Ocean Export Agent Name Role Phone Unavailable Primary Care Provider Unavailabl e Encounter Details Date Type Department Care Team (Late st Contact Info) Description 02/22/2011 Documentation [facility] [place] [address] [place] [address] Family Medicine, Physician [facility] [place] [address] Social History Tobacco Use Types Packs/Day Years [...]
--- OUTSIDE RECORDS SUMMARY | 2025-03-14 15:10 | XMS_ITS | Encounter Summary ---
Author Organization [facility] Address [address] [place] [phone] Phone Care Team Providers Care Client Hr Manager Name Role Phone Unavailable Primary Care Provider Unavailabl e Encounter Details Date Type Department Care Team (Late st Contact Info) Description 11/13/2014 Documentation [facility] [place] [address] [place] [address] Family Medicine, Physician [facility] [place] [address] Social History Tobacco Use Types Packs/Day Years [...]
--- OUTSIDE RECORDS SUMMARY | 2025-03-14 15:10 | XMS_ITS | Encounter Summary ---
Author Organization [facility] Address [address] [place] [phone] Phone Care Team Providers Care Identifier Horse Name Role Phone Unavailable Primary Care Provider Unavailabl e Encounter Details Date Type Department Care Team (Late st Contact Info) Description 11/12/2013 Documentation [facility] [place] [address] [place] [address] Family Medicine, Physician [facility] [place] [address] Social History Tobacco Use Types Packs/Day Years [...]
--- OUTSIDE RECORDS SUMMARY | 2025-03-14 15:10 | XMS_ITS | Encounter Summary ---
Author Organization [facility] Address [address] [place] [phone] Phone Care Team Providers Care Harvesting Supervisor Name Role Phone Unavailable Primary Care Provider Unavailabl e Encounter Details Date Type Department Care Team (Late st Contact Info) Description 01/24/2013 Documentation [facility] [place] [address] [place] [address] Family Medicine, Physician [facility] [place] [address] Social History Tobacco Use Types Packs/Day Years [...]
--- OUTSIDE RECORDS SUMMARY | 2025-03-14 15:10 | XMS_ITS | Encounter Summary ---
Author Organization [facility] Address [address] [place] [phone] Phone Care Team Providers Care Medical Affairs Leader Name Role Phone Unavailable Primary Care Provider Unavailabl e Encounter Details Date Type Department Care Team (Late st Contact Info) Description 02/03/2016 Documentation [facility] [place] Family Medicine [address] [place] [address] Family Medicine, Physician [facility] [place] [address] Social History Tobacco Use Types Packs/Day Years [...]
--- OUTSIDE RECORDS SUMMARY | 2025-03-14 15:10 | XMS_ITS | Encounter Summary ---
Author Organization [facility] Address [address] [place] [phone] Phone Care Team Providers Care Relationship Consultant Name Role Phone Unavailable Primary Care Provider Unavailabl e Encounter Details Date Type Department Care Team (Late st Contact Info) Description 06/07/2016 Documentation [facility] [place] [address] [place] [address] Family Medicine, Physician [facility] [place] [address] Social History Tobacco Use Types Packs/Day Years [...]
--- OUTSIDE RECORDS SUMMARY | 2025-03-14 15:10 | XMS_ITS | Encounter Summary ---
Author Organization [facility] Address [address] [place] [address] Phone Care Team Providers Care Mold Design Engineer Name Role Phone Unavailable Primary Care Provider Unavailabl e Encounter Details Date Type Department Care Team (Late st Contact Info) Description 12/08/2016 Conversion Encounter [facility] - [address] [address] Social History Tobacco Use Types Packs/Day Years [...]
--- OUTSIDE RECORDS SUMMARY | 2025-03-14 15:10 | XMS_ITS | Clinical Summary ---
Author Organization [facility] Address [address] [place] [phone] Phone Care Team Providers Care Parcel Post Carrier Name Role Phone Unavailable Primary Care Provider Unavailabl e Allergies Active Allergy Reactions Criticality Noted Date Comments Amoxicillin Rash Low Medications Sodium Fluoride 5000 PPM 1.1 % paste USE IN PLACE OF REGULAR TOOTHPASTE AT NIGHT NO EATING,DRINKING ,OR RINSING FOR 30 MINUTES AFTER USE 2 Active Active Problems Problem Noted Date Diagnosed Date Allergic rhinitis 07/07/2021 Overview (07/07/2021): Claritin prn Resolved Problems Problem Noted Date Diagnosed Date Resolved Date Need for case management follow-up 02/04/2020 07/07/2021 Overview (02/04/2020): STD screen not done due to national shortage of tests Immunizations Immunization Administration Dates Next Due DTaP 5 10/29/2007, 5,04/07/2004,02/05,2003 H1N1 04/08/2009,02/26/2009 HPV Vaccine 9 Valent 06/06/2016,02/02/2016,11/30 Hep A, ped/adol 11/08/2013,11/02/2010 Hep B, ped/adol 07/06/2007,06/30/2004,2003 Hib (HbOC) 12/31/2004,02/06/2004,2003 Hib (PRP-T) 04/07/2004 IPV 10/29/2007, 5,02/06/2004,12/08 Influenza Split 01/31/2012,02/18/2011,01/18/2010 Influenza, injectable, quadrivalent 02/02/2016 Influenza, injectable, quadr ivalent, preservative free 03/02/2021,02/04/2020,01/31/2019,01/30,01/17/2017 Influenza, injectable, trivalent 009,03/12/2008,02/07/2007,03/07,01/26/2005,04/07/2004 Influenza, intranasal, quadrivalent 01/28/2015,1 ,01/23/2013 MMR 10/29/2007,10/04/2004 Meningococcal B Trumenba 09/26/2022,10/04/2021 Meningococcal Conj (Menactra) MCV4P 10/22/2019,0 11/12/2014 Pneumococcal Conjugate 12/31/2004,2003,02/06/2004,12/08 Tdap 11/17/2023,11/12/2014 Varicella 10/29/2007,10/04/2004 Family History Medical History Relation Name Comments Deafness Father Karel Edwards Hyperlipidemia Father Karel Edwards Cancer Maternal Grandmother Relation Name Status Comments Brother 1 Sly Edwards Alive Brother: Alive and well, Alive and well Brother 2 Guy Edwards Alive Brother: Ali ve and well, Alive and well Father Karel Edwards Alive Father: Alive and well Maternal Grandmother Mother Maverick Edwards Alive Mother: Alive and well Paternal Grandfather Paterna l grandfather: Diabetes mellitus Social History Tobacco Use Types Packs/Day Years Used Date Smoking Tobacco: Never Smokeless Tobacco: Never Hunger/Food Answer Date Recorded In the last 12 months, did y ou or your family ever eat less than you felt you should because there wasn't enough money for food? No 09/26/2023 Stable Housing Answer Date Recorded Are you worried that in the next 2 months you may not have stable housing? No 09/26/2023 Transportation Concerns Answer Date Rec orded In the last 12 months, have you or your family ever had to go without healthcare because you didn't have a way to get there? No 09/26/2023 Hazards in Home Answer Date Recorded Think about the place you li ve. Do you have problems with any of the following? Pests (mice or roaches), mold, no/not working smoke detectors, water leaks, no window guards. No 2023 Financing Utilities Answer Date Recorde d In the last 12 months, has t he electric, gas, oil, or water company threatened to shut off your services in your home? No 09/26/2023 Safety at Home Answer Date Recorded Are you or your family worried about feeling saf e in your home? No 09/26/2023 Outside Support Answer Date Recorded Do you feel that you need mo re support from other people or programs to help you care for yourself or your family? No 09/26/2023 Understanding Health Concerns Answer Da te Recorded Do you need help understandi ng your or your child's healthcare needs (diagnosis, medications, plan, etc.)? No 09/26/2023 Financing Health Concerns Answer Date R ecorded In the last 12 months, was t here a time when your child needed to see a doctor or get medications or supplies but could not because of cost? No 09/26/2023 Missing School or Work Answer Date Jaspal rded Did you or your child miss s chool or work because of a health problem that could have been avoided? No 09/26/2023 Child Education Answer Date Recorded Do you have concerns about y our/your child's learning or behavior in school, preschool, or daycare? No 09/26/2023 Sex and Gender Information Value Date Recorded Sex Assigned at Male 09/28/2023 11:19 AM EDT Legal Sex Male 4:58 PM EDT Gender Identity Male 09/28/2023 11:19 AM EDT Sexual Orientation Straight 07/07/2021 9: 13 AM EDT Last Filed Vital Signs Vital Sign Reading Time Taken Comments Blood Pressure 117/77 09/28/2023 10:48 AM EDT Pulse 69 09/28/2023 10:48 AM EDT Temperature 36.2 C (97.1 F) 07/07/2021 8:45 AM EDT Respiratory Rate - - Oxygen Saturation - - Inhaled Oxygen Concentration - - Weight 78.1 kg (172 lb 3.2 oz) 09/28/2023 10:48 AM EDT Height 184.2 cm (6' 0.5 ) 09/28/2023 10:48 AM ED T Body Mass Index 23.03 09/28/2023 10:48 AM EDT Plan of Treatment Health Maintenance Due Date Last Done Comments Influenza Vaccines (#1) 2024 01/27/20 24, 03/02/2021, 02/04/2020, Additional history exists COVID-19 Vaccine (7 - 2024-2 6 season) 2024 01/27/2024, 04/11/2023, 03/15/2022, Additional history exists DTaP,Tdap,and Td Vaccines (8 - Td or Tdap) 11/16/2033 11/17/2023, 11/12/2014, 10/29/2007, Additional history exists HIB Vaccines Completed 12/31/2004, 03/24, 02/06/2004, Additional history exists Pneumococcal Vaccine Completed 12/31/2004, 04/07/2004, 02/06/2004, Additional history exists Hepatitis B Vaccines Completed 07/06/2007, 06/30/2004, 2003 IPV Vaccines Completed 10/29/2007, 12/2004, 02/06/2004, Additional history exists MMR Vaccines Completed 10/29/2007, 10/04/2004 Varicella Vaccines Completed 10/29/2007, 10/04/2004 Hepatitis A Vaccines Completed 11/08/2013, 11/03/19 11 HPV Vaccines Completed 06/06/2016, 01/22, 12/01/2015 Meningococcal Vaccine Completed 10/22/2019, 015 Men B Vaccine Completed 09/26/2022, 10/04/2021
--- OUTSIDE RECORDS SUMMARY | 2025-03-14 15:10 | XMS_ITS | Encounter Summary ---
Author Organization [facility] Address [address] [place] [phone] Phone Care Team Providers Care Market Director Name Role Phone Unavailable Primary Care Provider Unavailabl e Encounter Details Date Type Department Care Team (Late st Contact Info) Description 02/01/2012 Documentation [facility] [place] Family Medicine [address] [place] [address] Family Medicine, Physician Count includes the [facility] [address] Social History Tobacco Use Types Packs/Day Years [...]
== END 2025-03-14 15:20 | disposition home or self-care (01) ==
LOC: HO.HMCH 15:01
DX: F41.9 Anxiety disorder, unspecified (principal); R41.840 Attention and concentration deficit; M25.512 Pain in left shoulder

== ENCOUNTER → 2025-03-14 15:01 | Outpatient (BNVA) | payer OTHER, MEDICAID, SELFPAY | DX: M25.512 Pain in left shoulder (principal); F41.9 Anxiety disorder, unspecified; R41.840 Attention and concentration deficit; Z79.899 Other long term (current) drug therapy | CPT/HCPCS: 96127 ==